=== PATIENT | female | born 1980 | race African-American/Black ===

== ENCOUNTER 2023-04-14 19:26 | Emergency (ER) | payer OTHER, MEDICAID ==
[~2023-04-14] VITALS: Ht 177.8 cm; Wt 77.1 kg
[2023-04-14 19:41] VITALS: BP 124/84; PULSE 71; RESP 16; TEMP 98.3; O2SAT 99
[2023-04-14] MEDS ORDERED: TACR1CAP4 PO ×3 (20:30→21:37)
== END 2023-04-14 21:35 | disposition home or self-care (01) ==
LOC: ER 19:26
DX: D86.0 Sarcoidosis of lung (principal); Z76.0 Encounter for issue of repeat prescription; Z94.2 Lung transplant status; Z79.899 Other long term (current) drug therapy; Z88.8 Allergy status to other drugs, medicaments and biological substances